=== PATIENT | male | born 2000 | race Asian ===

== ENCOUNTER 2020-02-23 02:54 | Outpatient (CLI) | payer BC, SELFPAY ==
[2020-02-25 11:05] LABS: SARS-CoV-2 RNA Undetected (Undetected); SARS-CoV-2 Specimen Source Nasal
== END 2020-02-23 03:14 ==
PROVIDERS: PCP Pediatrics; Visit Provider Pediatrics
DX: Z11.59 Encounter for screening for other viral diseases (principal)
CPT/HCPCS: U0003

== ENCOUNTER 2020-04-20 10:40 | Outpatient (CLI) | payer BC, SELFPAY ==
--- NOTE | 2020-04-20 11:40 | DI.RAD_ITS ---
EXAM: XR ANKLE RT COMPLETE CLINICAL HISTORY: right ankle injury, rt ankle pain, M25.571. TECHNIQUE: 2D digital imaging was performed. COMPARISON: No exams were available for comparison FINDINGS: BONES: No acute fracture is present. No bony destructive lesion is seen. JOINTS: The ankle mortise is normally aligned. SOFT TISSUE: Normal. IMPRESSION: Unremarkable radiographs of the right ankle. DATA REPOSITORY: RADIATION DOSE DELIVERED:
== END 2020-04-20 11:00 ==
PROVIDERS: Visit Provider Nurse Practitioner Family
DX: M25.571 Pain in right ankle and joints of right foot (principal)
CPT/HCPCS: 73610

== ENCOUNTER 2022-10-11 11:10 | Outpatient (CLI) | payer BC, SELFPAY ==
--- NOTE | 2022-10-11 11:00 | RT.EKG_ITS ---
APPROVED REPORT Exam: Resting ECG Reason for Exam: dizziness Patient Location: O HR:68 bpm ECG Measurements Heart Rate 68 AXIS MI 168 P 76 QRSd 98 QRS 89 QT 379 T 38 QTc 404 Conclusion Sinus rhythm...normal P axis, V-rate 50- 99 Probable left atrial enlargement...P >50mS, <-0.10mV V1 ST elev, probable normal early repol pattern...ST elevation, age<55
== END 2022-10-11 11:11 | disposition home or self-care (01) ==
LOC: DI.CM 11:11
PROVIDERS: PCP Nurse Practitioner Family; Visit Provider Family Medicine
DX: R42 Dizziness and giddiness (principal)
CPT/HCPCS: 93010

== ENCOUNTER 2022-11-15 04:07 | Outpatient (CLI) | payer BC, SELFPAY ==
[2022-11-15 12:00] LABS: ALT 28 U/L (16-63); AST 20 U/L (15-37); Albumin 4.4 g/dL (3.4-5.0); Alkaline Phosphatase 64 U/L (46-116); Anion Gap 5.6 mmol/L (3-11); BUN 17 mg/dL (7-18); CO2 31.4 mmol/L (21.0-32.0); Calcium 9.4 mg/dL (8.5-10.1); Chloride 101 mmol/L (98-107); Estimated GFR 109.13 (mL/min/1.73m2); Glucose 99 mg/dL (74-106); Potassium 4.2 mmol/L (3.5-5.1); Sodium 138 mmol/L (136-145); Total Protein 7.6 g/dL (6.4-8.2)
== END 2022-11-15 04:08 | disposition home or self-care (01) ==
LOC: LBO 04:07
PROVIDERS: PCP Nurse Practitioner Family; Visit Provider Family Medicine
DX: R55 Syncope and collapse (principal); R42 Dizziness and giddiness
CPT/HCPCS: 36415; 80053

== ENCOUNTER 2024-11-23 15:50 | Emergency (ER) | payer BC, SELFPAY ==
[2024-11-23 15:53] VITALS: BP 135/85; PULSE 68; RESP 18; TEMP 37.1; O2SAT 98
[2024-11-23 16:02] VITALS: BP 135/85; PULSE 68; RESP 18; TEMP 37.1; O2SAT 98
--- NOTE | 2024-11-23 16:12 | ED.GENADUL_ITS ---
Discharge Plan Disposition Patient Disposition: Home Condition: Stable Discharge Details Clinical Impression: Gastroenteritis Primary Care Provider: Milan Esqueda ED Provider: Deonte Panchal Home Meds and New Rx's Prescriptions: No Action glycopyrrolate 1 mg tablet Discharge Instructions Instructions: Viral gastroenteritis in adults, Ondansetron Additional Instructions: You were seen in the emergency department for your sudden onset abdominal cramping with nausea and vomiting, you likely have a stomach bug, you had just above normal bilirubin which can be due to nausea and vomiting in itself. Your lipase is normal indicating no pancreatitis, your lactate is negative indicating no sepsis, you do have elevated white blood cells likely in response to a viral gastroenteritis, you improved with Tylenol, NSAID, nausea medicine and IV fluids, we are sending you home with 3 tablets of Zofran to dissolve under your tongue before mealtimes 3 times per day. Please return for any severe increase in abdominal pain especially with fever, intractable nausea or vomiting or any other emergent concerns. Referrals: Milan Esqueda, [employer] [Primary Care Provider, Medicine] HPI General Date/Time Provider Initiated Documentation: 11/23/24 15:55 . HPI Narrative: 24 year-old male presents to ED today by POV/ambulating with his mother with a chief complaint of nausea and vomiting, abdominal cramping, diarrhea, with sudden onset around 10am today. Patient endorsed going out drinking last night but only had 4 drinks. Quality described as generalized abdominal cramping, nausea and vomiting, with diarrhea, no radiation to fever, hematemesis, shortness of breath, chest pain, black/bloody diarrhea. Severity is described as severe. Palliating factors include nothing specific attempted. Provoking factors include nothing specific Patient not anticoagulated. Related Data Home Medications ?Medication ?Instructions ?Recorded ?Confirmed glycopyrrolate 1 mg tablet mg 11/23/24 Allergies Allergy/AdvReac Type Severity Reaction Status Date / Time amoxicillin Allergy Mild rash Verified 11/23/24 15:56 General Stated Complaint: Abd Prob ZOYA: 3 Review of Systems All systems reviewed & are unremarkable except as noted in HPI and below Exam Narrative Exam Narrative: GENERAL APPEARANCE: Well-nourished, non-toxic, awake and alert, atraumatic, mild acute distress. SKIN: Warm, pink, dry, intact, without rashes/lesions/ulcerations. HEAD: Normocephalic, atraumatic, normal hair distribution for gender/age. EYES: Normal conjunctiva, no exudates on lids/lashes. ENT: Nares patent, no circumoral cyanosis, no facial swelling NECK: Supple, trachea midline, painless cervical ROM. LUNGS/CHEST: Lungs CTA bilaterally-no rhonchi/rales/wheezes diffusely, non- labored respirations, normal A/P diameter, symmetrical expansion, no chest wall deformity HEART (CV/PV): Regular rate and rhythm without murmur, no peripheral edema, no JVD. ABDOMEN: Soft, non-distended, no guarding, no tenderness, negative McBurney's point tenderness, negative Delacruz sign, no CVA tenderness percussion bilaterally. MSK: Normal ROM, no swelling/deformity to bilateral UEs or LEs, moving all extremities without weakness, no cyanosis, spine midline without tenderness, normal curvature. NEURO: Mental Status AAOx4 - alert to person, place, time, events No facial droop, no forehead involvement. Motor: No focal weakness - strength 5/5 in bilateral UEs and LEs, proximal and distal, symmetric. Sensory: sensation intact to light touch globally. Gait normal: patient ambulated without ataxia into ED room. PSYCH: euthymic, cooperative, pleasant, appropriate speech Course Vital Signs Vital signs: Vital Signs Temperature 37.1 C 11/23/24 15:53 Pulse 68 11/23/24 15:53 Respiratory Rate 18 11/23/24 15:53 Blood Pressure 135/85 11/23/24 15:53 Pulse Oximetry 98 11/23/24 15:53 Temperature 37.1 C 11/23/24 16:02 Pulse 68 11/23/24 16:02 Respiratory Rate 18 11/23/24 16:02 Blood Pressure 135/85 11/23/24 16:02 Pulse Oximetry 98 11/23/24 16:02 Oxygen Delivery Method Room Air 11/23/24 16:02 Pain Level 3 11/23/24 16:02 Medical Decision Making This dictation utilizes [id number] dictation software and may contain unedited grammatical errors. 24 year-old male presents to ED today by POV/ambulating with his mother with a chief complaint of nausea and vomiting, abdominal cramping, diarrhea, with sudden onset around 10am today. Patient endorsed going out drinking last night but only had 4 drinks. Quality described as generalized abdominal cramping, nausea and vomiting, with diarrhea, no radiation to fever, hematemesis, sh ortness of breath, chest pain, black/bloody diarrhea. Severity is described as severe. Palliating factors include nothing specific attempted. Provoking factors include nothing specific. Patients' medical history: Negative, otherwise healthy. Family and social history: Played basketball before onset this morning. Pertinent exam findings / vital signs include benign abdomen, soft and nontender, no Delacruz sign, no McBurney's point tenderness, no CVA tenderness percussion bilaterally, stable vitals, nontoxic and afebrile. Differential / pathologies of concern include gastroenteritis, dehydration, less likely sepsis, unlikely kidney failure, liver failure or biliary colic. Diagnostic studies of: - CBC, CMP, lactate, magnesium, lipase, UA. - CBC shows elevated white blood cells at 18.94 likely exacerbated by acute nausea and vomiting today - Lactate 2.0 given 2 L of fluid - CMP shows no actionable abnormality with only a mild elevation of bilirubin at 1.3 and elevated conjugated bilirubin at 0.3 do not suspect any obstructive biliary pathology without correlation with physical exam - Magnesium within normal limits - UA benign-likely starvation ketosis Interventions of: -2L IVF LR, 4mg IVP Zofran, 1g IV APAP, 15mg IVP ketorolac, 3 tab zofran to go, patient improved and passed PO challenge. ED Course/Assessment/Plan: 24-year-old male with sudden onset of abdominal cramping without tenderness, nausea and vomiting, improved with conservative management here in the ER, likely has gastroenteritis, labs are reassuring save for his leukocytosis which is likely linked to his vomiting, patient felt better passed p.o. challenge, strict criteria for return for any acute worsening especially with severe abdominal pain and fever and intractable nausea or vomiting. Findings not consistent with biliary colic, renal colic, appendicitis, SBO, emergent surgical abdominal pathology. Disposition of Gastroenteritis. Patient verbalized understanding of the plan and return to ED criteria and engaged in shared decision making. Medical Records Medical records reviewed: Yes I reviewed the patient's medical records. Lab Data Lab results reviewed: Yes I reviewed the patient's lab results. Labs: Laboratory Tests Range/Units 11/23/24 11/23/24 16:10 18:18 WBC (4.4-10.8) 10^3/uL 18.94 H RBC (4.36-5.78) 10^6/uL 4.92 Hgb (13.5-17.5) g/dL 15.8 Hct (40.0-50.0) % 44.5 MCV (80-95) fL 90 MCH (27.0-33.0) pg 32.1 MCHC (32.0-36.0) % 35.5 RDW (11.8-14.1) % 11.7 L Plt Count (130-400) 10^3/uL 308 MPV (8.0-11.0) fL 10.1 Immature Gran % % 0.4 Neutrophils % % 91.3 Lymphocytes % % 3.5 Monocytes % % 4.5 Eosinophils % % 0.0 Basophils % % 0.3 Nucleated RBC % (0.0-0.3) % 0.0 Absolute Neutrophils (1.2-6.7) 10^3/uL 17.29 H Absolute Lymphocytes (1.2-3.4) 10^3/uL 0.66 L Absolute Monocytes (0.1-0.8) 10^3/uL 0.85 H Absolute Eosinophils (0.0-0.7) 10^3/uL 0.00 Absolute Basophils (0.0-0.2) 10^3/uL 0.06 VBG Lactate (<or=2.0) mmol/L 2.0 Sodium (136-145) mmol/L 142 Potassium (3.5-5.1) mmol/L 3.9 Chloride (98-107) mmol/L 103 Carbon Dioxide (21.0-32.0) mmol/L 22.6 Anion Gap (3-11) mmol/L 16.4 H BUN (7-18) mg/dL 17 Creatinine (0.70-1.30) mg/dL 1.0 Est GFR (CKD-EPI 2020) (mL/min/1.73m2) 107.78 Glucose (74-106) mg/dL 126 H Calcium (8.5-10.1) mg/dL 9.6 Magnesium (1.8-2.4) mg/dL 1.9 Total Bilirubin (0.2-1.0) mg/dL 1.3 H Conjugated Bilirubin (0.0-0.2) mg/dL 0.3 H AST (15-37) U/L 21 ALT (16-63) U/L 22 Alkaline Phosphatase (46-116) U/L 67 Total Protein (6.4-8.2) g/dL 7.7 Albumin (3.4-5.0) g/dL 4.8 Lipase (<78) U/L 33 Urine Color (Yellow) Yellow Urine Clarity (Clear) Clear Urine pH (5-8) 7.0 Ur Specific [place] (1.005-1.025) 1.025 Urine Protein (Neg-Trace) mg/dL Negative Urine Ketones (Negative) mg/dL >=160 H Urine Blood (Negative) Negative Urine Nitrite (Negative) Negative Urine Bilirubin (Negative) Negative Urine Urobilinogen (Up to 0.2) mg/dL 0.2 Ur Leukocyte Esterase (Negative) Negative Urine Glucose (Negative) mg/dL Negative PFSH All Active Problems (Updated 11/23/24 @ 18:31 by YEMI Gasca) Gastroenteritis (Acute) Discomfort of left ear (Acute) Left ear pain (Acute) Generalized hyperhidrosis (Acute) Vasovagal near syncope (Acute) Medical History Right ankle pain Asthma resolved/out grew Allergy to amoxicillin Surgical History Status post labral repair of shoulder Circumcision Family History grandparent Substance abuse Social History Smoking/Tobacco Use Status: Never Tobacco: How many years used: 2 Smokeless tobacco user: other Quit status: has quit before Second Hand Exposure: Yes Smoking risk assessment performed?: Yes Alcohol Intake: current Alcohol Intake frequency: a few times a month Alcohol type: beer and hard liquor Drug use: Socially Substance use type: marijuana Caregiver/Support person: No Household members: family Housing: house Communication Needs: None Education Level: college Details: BS environmental engineering Do you need help understanding health information?: Rarely current occupation: working for [employer] Pets and animals: Yes Pets and animals: dog(s) Sexually active: Yes Do you think of yourself as: straight/heterosexual Current gender identity: male What is your relationship status?: never How often do you talk on the phone with friends or family?: three or more times per week How often do you get together with friends or relatives?: twice per week How often do you attend sabianism or temple services?: decline to answer Do you belong to any clubs or organized social groups?: yes Panel score (0-1 are the most socially isolated patients): 2 What type of physical activity do you participate in: other Details: skiing,hiking and kajaking Duration: > 90 minutes/day Frequency: 5-6 times per week Tri/Mormonism: No preference Special tri needs: No Seatbelt use: always Drive intox or ride w/intox school bus driver/teacher assistant: No Working smoke detector in home: Yes Fire extinguisher in home: Yes Carbon monox detector in home: Yes Do you feel safe in your relationship?: Yes
[2024-11-23 16:20] LABS: Abs Immature Grans 0.08 10^3/uL (0.0-0.06); HCT 44.5 % (40.0-50.0); HGB 15.8 g/dL (13.5-17.5); Immature Grans % 0.4 %; MCH 32.1 pg (27.0-33.0); MCHC 35.5 % (32.0-36.0); MCV 90 fL (80-95); MPV 10.1 fL (8.0-11.0); Platelet Count 308 10^3/uL (130-400); RBC 4.92 10^6/uL (4.36-5.78); RDW 11.7 % (11.8-14.1); RDW-SD 38.7 fL; WBC 18.94 10^3/uL (4.4-10.8)
[2024-11-23 16:40] LABS: ALT 22 U/L (16-63); AST 21 U/L (15-37); Albumin 4.8 g/dL (3.4-5.0); Alkaline Phosphatase 67 U/L (46-116); Anion Gap 16.4 mmol/L (3-11); BUN 17 mg/dL (7-18); Bilirubin, Total 1.3 mg/dL (0.2-1.0); CO2 22.6 mmol/L (21.0-32.0); Calcium 9.6 mg/dL (8.5-10.1); Chloride 103 mmol/L (98-107); Estimated GFR 107.78 (mL/min/1.73m2); Glucose 126 mg/dL (74-106); Lipase 33 U/L (<78); Magnesium 1.9 mg/dL (1.8-2.4); Potassium 3.9 mmol/L (3.5-5.1); Sodium 142 mmol/L (136-145); Total Protein 7.7 g/dL (6.4-8.2)
[2024-11-23] MEDS: Lactated Ringers 1,000 ML 1000 ML IV ×2 (16:44→17:31)
[2024-11-23] MEDS: Ketorolac 15 MG/ML VIAL IVP (16:44)
[2024-11-23] MEDS: Ondansetron 4 MG/2 ML VIAL IVP (16:44)
[2024-11-23] MEDS: ACETAMINOPHEN 1,000 MG/100 ML BAG 400 MG IVPB (16:45)
[2024-11-23 17:43] LABS: Bilirubin, Direct 0.3 mg/dL (0.0-0.2)
[2024-11-23 18:25] LABS: Glucose Negative (Negative)
[2024-11-23 18:36] VITALS: BP 124/76; PULSE 98; O2SAT 99
[2024-11-23] MEDS: Ondansetron O.D.T. 4 MG TABEF, 3 TABS/BTL PO (18:36)
[2024-11-26 11:26] LABS: Lyme Ab w Rflx to Lyme Confirm Negative (Negative)
[2024-11-27 17:53] LABS: B. miyamotoi PCR Negative (Negative); Babesia divergens/MO-1 Negative (Negative); Ehrlichia muris eauclairensis Negative (Negative)
== END 2024-11-23 19:05 | disposition home or self-care (01) ==
PROVIDERS: Emergency Provider Physician Assistant; PCP Nurse Practitioner Family
DX: K52.9 Noninfective gastroenteritis and colitis, unspecified (principal)
CPT/HCPCS: 36415; 80053; 83690; 87798; 96361; 96374; 96375; 99284; 81003; 82248; 83605; 83735; 85025; 86618; 99283; J0131; J1885; J2405

== ENCOUNTER 2024-12-17 09:41 | Outpatient (CLI) | payer BC, SELFPAY ==
[2024-12-17 14:27] LABS: Hemoglobin A1C 5.1 % (<5.7)
[2024-12-17 14:29] LABS: Calculated LDL 116 mg/dL (<100); Cholesterol 169 mg/dL (<200); HDL Cholesterol 44 mg/dL (>or=40); Triglyceride 49 mg/dL (<150)
== END 2024-12-17 09:42 | disposition home or self-care (01) ==
LOC: LOS 09:41
PROVIDERS: PCP Nurse Practitioner Family; Referring Provider Nurse Practitioner Family; Visit Provider Nurse Practitioner Family
DX: Z13.1 Encounter for screening for diabetes mellitus (principal); Z13.220 Encounter for screening for lipoid disorders
CPT/HCPCS: 36415; 80061; 83036